=== PATIENT | male | born 1965 | race Caucasian/White ===

== ENCOUNTER 2024-08-23 17:16 | Inpatient (IN) | payer OTHER ==
[~2024-08-23] VITALS: Ht 188 cm; Wt 87.0 kg
[2024-08-23 17:30] LABS: BASOPHILS ABSOLUTE AUTO 0.05 K/mm3 (0.00-0.23); BASOPHILS PERCENT AUTO 1 % (0-2); EOSINOPHILS ABSOLUTE AUTO 0.14 K/mm3 (0.00-0.68); EOSINOPHILS PERCENT AUTO 2 % (0-6); Hematocrit 44.8 % (37.0-53.0); Hemoglobin 15.5 g/dL (13.5-17.5); IMMATURE GRAN ABSOLUTE AUTO 0.02 K/mm3 (0.00-0.10); IMMATURE GRAN PERCENT AUTO 0 % (0-1); LYMPHOCYTES ABSOLUTE AUTO 2.33 K/mm3 (0.84-5.20); LYMPHOCYTES PERCENT AUTO 26 % (21-46); MONOCYTES ABSOLUTE AUTO 0.75 K/mm3 (0.16-1.47); MONOCYTES PERCENT AUTO 8 % (4-13); Mean Corpuscular HGB 26.8 pg (26.0-34.0); Mean Corpuscular HGB Conc 34.6 g/dL (31.5-36.5); Mean Corpuscular Volume 78 fL (80-100); Mean Platelet Volume 8.4 fL (9.1-12.4); NEUTROPHILS ABSOLUTE AUTO 5.86 K/mm3 (1.96-9.15); NEUTROPHILS PERCENT AUTO 64 % (41-73); Platelet Count 175 K/mm3 (150-400); RDW Coefficient Variation 13.8 % (11.7-14.2); RDW Standard Deviation 38.2 fL (35.1-46.3); Red Blood Cell Count 5.78 M/mm3 (4.30-5.90); White Blood Cell Count 9.15 K/mm3 (4.00-11.30)
[2024-08-23 17:46] LABS: International Normalized Ratio 1.05; Prothrombin Time Results 11.2 Sec (9.7-11.5)
[2024-08-23 17:56] LABS: Ethanol (Alcohol), Blood, Med <3 mg/dL
[2024-08-23 18:00] LABS: Alanine Aminotransfer (ALT/SGP 43 U/L (12-78); Albumin/Globulin Ratio 1.5 (0.8-1.8); Alk Phos 83 U/L (50-136); Anion Gap 10 mmol/L (3-11); Aspartate Aminotrans (AST/SGOT 41 U/L (12-37); Bilirubin, Total 1.1 mg/dL (0.1-1.0); Blood Urea Nitrogen 24 mg/dL (8-24); Bun/Creatinine Ratio 21.2 (12.0-20.0); CO2, Blood 27 mmol/L (21-32); Chloride, Blood 108 mmol/L (98-108); Creatinine, Blood 1.13 mg/dL (0.60-1.20); Globulin, Blood 2.7 g/dL (2.2-4.0); Glomerular Filtration Rate 75 (60-); Glucose, Blood 131 mg/dL (70-99); Potassium, Blood 3.9 mmol/L (3.5-5.5); Sodium, Blood 141 mmol/L (136-145); Total Protein, Blood 6.7 g/dL (6.4-8.2)
[2024-08-23 19:00] LABS: Source, Urine Voided
[2024-08-23 19:02] LABS: Appearance, Urine Clear (Clear); Bilirubin, Urine Neg (Neg); Blood, Urine 5+ (Neg); Color, Urine Yellow (P-Yellow); Glucose Qualitative, Urine Neg (Neg); Ketones, Urine Neg (Neg); Leukocyte Esterase, Urine Neg (Neg); Nitrite, Urine Neg (Neg); Protein, Urine Neg (Neg); Urobilinogen, Urine NORM (Normal)
[2024-08-23 19:09] LABS: White Blood Cells, Urine 0-2 /hpf (0-5)
[2024-08-23 19:10] LABS: Bacteria Few /hpf; Squamous Epithelial Cells Rare /hpf (Few)
[2024-08-23 19:16] LABS: U Amphetamine Screen Not Detected; U Barbituate Screen Not Detected; U Benzodiazapine Screen Not Detected; U Buprenorphine Screen Not Detected; U Cannabinoids Screen Not Detected; U Cocaine Screen Not Detected; U Methadone Screen Not Detected; U Methamphetamine Screen Not Detected; U Opiates Screen Not Detected; U Oxycodone Screen Not Detected; U Phencyclidine Screen Not Detected
[2024-08-23] MEDS ORDERED: Lactated Ringer's 1,000 ML IV SCH (19:25)
[2024-08-23] MEDS ORDERED: Ondansetron HCl 2 MG / ML 2ML Vial IV PRN (19:25)
[2024-08-23] MEDS ORDERED: OxyCODONE HCL 5 MG TAB PO PRN (19:25)
[2024-08-23] MEDS ORDERED: Morphine Sulfate 4 MG/1 ML Injection IV PRN (19:25)
[2024-08-23] MEDS ORDERED: FLU VACC TS2024-25(6MOS UP)/PF 45 MCG/0.5 ML SYRINGE IM SCH (19:25)
[2024-08-23 21:26] VITALS: BP 147/95
[2024-08-24 05:19] VITALS: BP 133/77
--- NOTE | 2024-08-24 05:22 | NUR ---
SHIFT SUMMARY NOC PT A/O X 4. PLEASANT AND COOPERATIVE WITH CARE. VSS. ADMIT FROM ED WITH TRAUMA FROM FALLING OFF ROOF AT WORK. PT SUSTAINED MULTIPLE DISPLACED R RIB FX AND BRUISING, WELL TO R SHOULDER. THERE IS A SMALL PNEUMOTHORAX WITH MILD CREPITUS NOTED IN R SIDE WITH PALPATION. 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 PT REPORTS BEING DIAGNOSED IN NOVEMBER 2023, BUT HAS HAD EPISODES OF DISEQUILIBRIUM AND DIZZYNESS OVER PAST FEW YEARS. PT HAS REPEAT CHEST X RAY SCHEDULED FOR THIS MORNING TO REEVALUATE IF CHEST TUBE PLACEMENT IS INDICATED. PT PAIN AND NAUSEA BEING MANAGED PER EMAR. PT ON CLEAR LIQUID DIET AND HAS LR INFUSING @ 75 ML/HR. PT HAS NOT HAD C/O OF SOB AND IS ON RA SPO2 >95% ON BIOX. PT CURRENTLY RESTING WITH BED IN LOWEST POSITION, AND CALL LIGHT WITHIN REACH.
[2024-08-24 06:11] LABS: BASOPHILS ABSOLUTE AUTO 0.01 K/mm3 (0.00-0.23); BASOPHILS PERCENT AUTO 0 % (0-2); EOSINOPHILS PERCENT AUTO 0 % (0-6); Hematocrit 43.5 % (37.0-53.0); Hemoglobin 15.1 g/dL (13.5-17.5); IMMATURE GRAN ABSOLUTE AUTO 0.04 K/mm3 (0.00-0.10); IMMATURE GRAN PERCENT AUTO 0 % (0-1); LYMPHOCYTES ABSOLUTE AUTO 0.88 K/mm3 (0.84-5.20); LYMPHOCYTES PERCENT AUTO 8 % (21-46); MONOCYTES PERCENT AUTO 9 % (4-13); Mean Corpuscular HGB 26.9 pg (26.0-34.0); Mean Corpuscular HGB Conc 34.7 g/dL (31.5-36.5); Mean Corpuscular Volume 78 fL (80-100); Mean Platelet Volume 8.8 fL (9.1-12.4); NEUTROPHILS ABSOLUTE AUTO 9.38 K/mm3 (1.96-9.15); NEUTROPHILS PERCENT AUTO 83 % (41-73); Platelet Count 151 K/mm3 (150-400); RDW Coefficient Variation 13.8 % (11.7-14.2); RDW Standard Deviation 38.5 fL (35.1-46.3); Red Blood Cell Count 5.61 M/mm3 (4.30-5.90); White Blood Cell Count 11.31 K/mm3 (4.00-11.30)
[2024-08-24 06:50] LABS: Bun/Creatinine Ratio 25.7 (12.0-20.0); Calcium, Blood 8.8 mg/dL (8.5-10.1); Creatinine, Blood 0.9 mg/dL (0.60-1.20); Potassium, Blood 4.3 mmol/L (3.5-5.5)
[2024-08-24 07:14] VITALS: BP 128/79
[2024-08-24] MEDS ORDERED: Lidocaine 4% 1 Patch TOP SCH (09:00)
[2024-08-24] MEDS ORDERED: Cyclobenzaprine HCl 10 MG Tab PO PRN (09:40)
[2024-08-24] MEDS ORDERED: Acetaminophen 500 MG Tab PO SCH ×2 (12:00)
[2024-08-24 15:05] VITALS: BP 137/76
--- NOTE | 2024-08-24 16:09 | NUR ---
SHIFT SUMMARY PT IS A/OX4, FOLLOWS COMMANDS, SBA ASST TO BR. MEDICATED PT FOR PAIN W/ TYLENOL AND LIDOCAINE PATCHES PER EMAR, PT REPORTS PAIN TOLERABLE AND WANTS TO AVOID NARCOTIC USE IF POSSIBLE. PT HAS LIMITED RANGE TO R ARM DUE TO PAIN/RIB FXS. 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 PT TOLERATING FLUIDS AND REG DIET, VOIDING, AMBULATING. VSS. USING CALL LIGHT APPROPRIATELY.
[2024-08-24 20:27] VITALS: BP 144/80
[2024-08-24] MEDS ORDERED: TraMADol HCl 50 MG Tab PO PRN (21:25)
[2024-08-24] MEDS ORDERED: Diclofenac Sodium 100 GM TUBE TOP PRN (21:30)
--- NOTE | 2024-08-25 06:03 | NUR ---
SHIFT SUMMARY AOX4. VSS. DENIES N/V, BUSCH, DIZZINESS, DYSPNEA. SPO2 >90% ON RA. REPORTED 5/10 PAIN IN R ARM & SIDE @HS BUT DIDNT WANT ANY MEDICATION THAT COULD MAKE HIM FEEL LOOPY. DR WELCH ORDERED DICLOFENAC CREAM & 50MG ULTRAM, THIS AM PT REPORTS PAIN ONLY 2/10. PT ASKS WHEN HE WILL BE ALLOWED TO RETURN TO WORK, IF HE WILL BE ALLOWED TO TAKE IBPROPHEN @HOME & IF HE BENDS OR TWISTS IF THAT COULD MAKE FX WORSE. INFORMED PT I WOULD PASS THESE QUESTIONS TO DAY RN TO ASK PT ANTICIPATING DC HOME TODAY. CALL LIGHT IN REACH.
[2024-08-25 06:59] VITALS: BP 138/86
[2024-08-25] MEDS ORDERED: Ketorolac Tromethamine 15mg Vial IV PRN (09:25)
[2024-08-25 12:37] VITALS: BP 141/86
[2024-08-25] MEDS ORDERED: ACET500 PO (12:49)
[2024-08-25] MEDS ORDERED: CYCL10 PO (12:50)
[2024-08-25] MEDS ORDERED: VOLTAREN ARTHRI20 GM TOP (12:53)
[2024-08-25] MEDS ORDERED: NAPR500 PO (12:54)
[2024-08-25] MEDS ORDERED: PANT20 PO (12:56)
[2024-08-25] MEDS ORDERED: PAIN RELIEF1 EACH TOP (13:24)
--- NOTE | 2024-08-25 13:35 | NUR ---
DISCHARGE NOTE PT IS ALERT, INDEPENDENT W/ AMBULATION, PAIN IS WELL MANAGED W/ TYLENOL PER EMAR. DISCHARGE INSTRUCTIONS REVIEWED W/ PT, COPY GIVEN. MEDS FAXED TO [facility] IN [place], COPY IN CHART. VSS. SLING GIVEN TO PT W/ DEMONSTRATION OF HOW TO PUT IT ON. INSTRUCTED PT TO REMOVE LIDOCAINE PATCHES BY 2100 TONIGHT. PT DC'D IN STABLE CONDITION TO PRIVATE RIDE HOME W/ BELONGINGS.
[2024-08-26] MEDS ORDERED: Pantoprazole Sodium 40 MG Tab PO SCH (06:00)
== END 2024-08-25 13:34 | disposition home or self-care (01) | DRG 184 ==
LOC: ER 17:16 → SURS 19:21
PROVIDERS: Emergency Medicine; ADMIT Surgery
DX: S22.41XA Multiple fractures of ribs, right side, initial encounter for closed fracture (principal); S27.0XXA Traumatic pneumothorax, initial encounter; S27.321A Contusion of lung, unilateral, initial encounter; W13.2XXA Fall from, out of or through roof, initial encounter; M25.511 Pain in right shoulder; S20.311A Abrasion of right front wall of thorax, initial encounter; S30.811A Abrasion of abdominal wall, initial encounter
CPT/HCPCS: 36415; 70450; 71045; 71260; 72125; 73030; 73060; 73552; 74177; 80048; 80053; 80320; 81001; 83690; 85025; 85610; 93246; 94762; A9270; G0480; J2405; J7120; Q9967